=== PATIENT | female | born 1980 | race Caucasian/White ===

== ENCOUNTER 2018-06-23 12:26 | Emergency (ER) | payer MEDICAID ==
[2018-06-23 12:26] VITALS: BMI 36.9
[2018-06-23 12:39] VITALS: O2SAT 99
[2018-06-23 13:54] LABS: BASO % 0.4 % (0.0-2.0); EOS # 0.1 K/uL (0.0-0.7); EOS % 1.9 % (0.0-4.0); HEMOGLOBIN 14.9 g/dL (12.0-16.0); LYMPH % 32.8 % (20.0-40.0); MEAN CELL VOLUME 89.3 fl (81.0-99.0); MEAN CORPUSCULAR HEMOGLOBIN 30.1 pg (27.0-31.0); MEAN CORPUSCULAR HGB CONC 33.7 g/dL (33.0-37.0); MEAN PLATELET VOLUME 8.6 fl (7.2-11.7); MONO # 0.4 K/uL (0.0-0.8); NEUT # 3.6 K/uL (1.8-7.0); NEUT % 58.9 % (50.0-75.0); RBC 4.94 Mil/uL (3.80-5.20); RED CELL DISTRIBUTION WIDTH 12.6 % (11.5-14.5); WHITE BLOOD COUNT 6.1 K/uL (4.8-10.8)
[2018-06-23 14:09] LABS: BLOOD UREA NITROGEN 12 mg/dl (7-17); CALCIUM 9.5 mg/dL (8.4-10.2); GFR AFRICAN-AMERICAN > 60; GFR NON-AFRICAN AMERICAN > 60
[2018-06-23 14:20] LABS: B-TYPE NATRIURETIC PEPTIDE 96.5 pg/ml (0-450)
--- NOTE | 2018-06-23 14:42 | ED PDOC ---
HPI: Chest Pain Time Seen by Provider: 06/23/18 13:10 Chief Complaint (Nursing): Chest Pain Chief Complaint (Provider): chest pain History Per: Patient History/Exam Limitations: no limitations Onset/Duration Of Symptoms: Days (x1), Intermittent Episodes Additional Complaint(s): Loretta Jacobs is a 38 year old female, with a past medical history of asthma and HTN, who presents to the emergency department complaining of an intermittent left sided chest pain onset since yesterday. Patient states pain is exacerbated with movement of upper body and also reports difficulty breathing. Patient states she is taking care of her goddaughter who is particularly heavy and tends to carry her on her left arm. She did not take any medication for pain. She denies any fever, chills, leg swelling, dizziness, back pain, headache or syncope. No further medical complaints. PMD: [facility]. Past Medical History Reviewed: Historical Data, Nursing Documentation, Vital Signs Vital Signs: Last Vital Signs Temp 98.0 F 06/23/18 16:28 Pulse 77 06/23/18 16:28 Resp 16 06/23/18 16:28 BP 132/88 06/23/18 16:28 Pulse Ox 99 06/23/18 16:28 - Medical History PMH: Anxiety, Asthma, Back Problems, Depression, HTN Denies: HIV, Chronic Kidney Disease - Surgical History Surgical History: - Family History Family History: States: Unknown Family Hx - Social History Current smoker - smoking cessation education provided: No Alcohol: None Drugs: Denies - Home Medications Home Medications: Ambulatory Orders Medication Instructions Recorded Cholecalciferol [Vitamin D 1000 IU] 5,000 iu PO SUN 03/02/15 Ibuprofen [Motrin] 600 mg PO TID 03/02/15 Cyclobenzaprine HCl [Flexeril] 10 mg PO PRN PRN #15 tab 03/07/15 Mirtazapine [Remeron] 15 mg PO HS #15 tab 03/07/15 Famotidine [Pepcid] 20 mg PO DAILY #4 tab 03/22/15 Prednisone 50 mg PO DAILY #4 tab 03/22/15 Cimetidine 300 mg PO DAILY #5 tab 07/03/15 DiphenhydrAMINE [Benadryl] 25 mg PO Q8H PRN 5 Days cap 07/03/15 Prednisone 20 mg PO BID #10 tab 07/03/15 Neomycin/Polymyxin/Hydrocort 4 drop AD QID #1 bottle 08/10/15 [Cortisporin Otic Soln] Ciprofloxacin/Ciprofloxa HCl 500 mg PO Q12 #14 tab 01/17/16 [Ciprofloxacin] Phenazopyridine HCl [Pyridium] 100 mg PO TID #6 tab 01/17/16 - Allergies Allergies/Adverse Reactions: Allergies Allergy/AdvReac Type Severity Reaction Status Date / Time chocolate flavor Allergy RASH Verified 06/23/18 12:36 NATHANIEL Risk Score for UA/NSTEMI - NATHANIEL Risk Score Age > 64: NO 3 or more CAD Risk Factors: NO Known CAD (Stenosis greater than 50%): NO Aspirin use in past 7 days: NO Severe Angina: NO EKG ST changes greater than 0.5mm: NO Positive Cardiac Marker: NO NATHANIEL Score: 0 Risk %: 5% Wells Criteria for PE - Wells Criteria for Pulmonary Embolism Clinical Signs and Symptoms of DVT: No P.E is #1 Diagnosis, or Equally Likely: No Heart Rate >100: No Immobilization at least 3 days;Surgery previous 4 weeks: No Previous, objectively diagnosed PE or DVT: No Hemoptysis: No Malignancy w/treatment within 6 months, or palliative: No Total Score: 0 Review of Systems ROS Statement: Except As Marked, All Systems Reviewed And Found Negative Constitutional: Negative for: Fever, Chills Cardiovascular: Positive for: Chest Pain (left sided intermittent). Negative for: Edema (leg) Respiratory: Positive for: Shortness of Breath Musculoskeletal: Negative for: Back Pain Neurological: Negative for: Headache, Dizziness, Other (syncope) Physical Exam - Reviewed Nursing Documentation Reviewed: Yes Vital Signs Reviewed: Yes - Physical Exam Appears: Positive for: No Acute Distress Head Exam: Positive for: ATRAUMATIC, NORMAL INSPECTION, NORMOCEPHALIC Skin: Positive for: Normal Color, Warm, Dry Eye Exam: Positive for: Normal appearance, EOMI, PERRL Neck: Positive for: Painless ROM, Supple Cardiovascular/Chest: Positive for: Regular Rate, Rhythm. Negative for: Chest Non Tender (left chest wall tenderness), Murmur Respiratory: Positive for: Normal Breath Sounds. Negative for: Respiratory Distress Gastrointestinal/Abdominal: Positive for: Normal Exam, Soft. Negative for: Tenderness Back: Positive for: Normal Inspection Extremity: Positive for: Normal ROM (upper and lower extremities). Negative for : Tenderness, Deformity, Swelling Neurologic/Psych: Positive for: Alert, Oriented. Negative for: Motor/Sensory Deficits - Laboratory Results Result Diagrams: 06/23/18 13:50 06/23/18 13:50 - ECG O2 Sat by Pulse Oximetry: 99 (RA) Pulse Ox Interpretation: Normal Medical Decision Making Medical Decision Making: Time: 13:10 Initial impression: chest pain. Differential includes ACS, PE, musculoskeletal chest pain. Initial Plan: --EKG --Chest one view [RAD] --Tradol 30 mg IVP --Reevaluation EKG: NSR, normal QRS, no ST changes. Rate @ 72 bpm. Time: 1520 PROCEDURE: CHEST RADIOGRAPH, 1 VIEW HISTORY: chest pain COMPARISON: None available. FINDINGS: LUNGS: Clear. PLEURA: No pneumothorax or pleural fluid seen. CARDIOVASCULAR: Normal. OSSEOUS STRUCTURES: No significant abnormalities. VISUALIZED UPPER ABDOMEN: Normal. OTHER FINDINGS: None. IMPRESSION: No active disease. ----- Scribe Attestation: Documented by Michael Geronimo, acting as a scribe for Mell Dao MD. Provider Scribe Attestation: All medical record entries made by the Scribe were at my direction and personally dictated by me. I have reviewed the chart and agree that the record accurately reflects my personal performance of the history, physical exam, medical decision making, and the department course for this patient. I have also personally directed, reviewed, and agree with the discharge instructions and disposition. Disposition - Clinical Impression Clinical Impression: Chest pain - Patient ED Disposition Is Patient to be Admitted: No Doctor Will See Patient In The: Office Counseled Patient/Family Regarding: Studies Performed, Diagnosis, Need For Followup - Disposition Referrals: Jamaal Lunsford MD [Staff Provider] - Disposition: Routine/Home Disposition Time: 16:40 Condition: GOOD Additional Instructions: Take motrin for pain. Return for worsening. Follow up with your PCP in 2-3 days. Instructions: Chest Pain Forms: [facility] ED School/Work Excuse
--- NOTE | 2018-06-23 15:21 | RAD ---
Date of service: 06/23/2018 PROCEDURE: CHEST RADIOGRAPH, 1 VIEW HISTORY: chest pain COMPARISON: None available. FINDINGS: LUNGS: Clear. PLEURA: No pneumothorax or pleural fluid seen. CARDIOVASCULAR: Normal. OSSEOUS STRUCTURES: No significant abnormalities. VISUALIZED UPPER ABDOMEN: Normal. OTHER FINDINGS: None. IMPRESSION: No active disease.
[2018-06-23 16:29] VITALS: BP 132/88; PULSE 77; RESP 16; TEMP 98
--- NOTE | 2018-06-23 17:07 | CARD ---
APPROVED REPORT Date of service: 06/23/2018 EKG Measurement Heart [id number] <Conclusion> Normal sinus rhythm Normal ECG
== END 2018-06-23 17:13 | disposition home or self-care (01) ==
LOC: H.ER 12:26
DX: R07.89 Other chest pain (principal); J45.909 Unspecified asthma, uncomplicated; I10 Essential (primary) hypertension; F41.9 Anxiety disorder, unspecified; F32.9 Major depressive disorder, single episode, unspecified
CPT/HCPCS: 71045; 80048; 81025; 83880; 84484; 85025; 85378; 93005; 96374; 99283; J1885

== ENCOUNTER 2018-12-03 06:45 | Emergency (ER) | payer MEDICAID ==
[2018-12-03 06:46] VITALS: BMI 36.9
--- NOTE | 2018-12-03 07:41 | ED PDOC ---
HPI: Influenza Time Seen by Provider: 12/03/18 07:03 Chief Complaint: Cough, Cold, Congestion Chief Complaint (Provider): Flu-like Symptoms History Per: Patient Exam Limitations: no limitations Onset/Duration Of Symptoms: Days (x2) Additional complaint(s):: 38 year old female with pmhx of asthma (on Ventolin as needed) and HTN presents to the ED for evaluation of a sore throat for the past two days associated with chills, nasal congestion, and neck pain. Patient also reports that this morning she had swelling to both her eyes, but that has since resolved. Otherwise denies shortness of breath, chest pain, muscle pain, abdominal pain, and back pain. PMD: [facility] Past Medical History Reviewed: Historical Data, Nursing Documentation, Vital Signs Vital Signs: Last Vital Signs Temp 98 F 12/03/18 06:55 Pulse 64 12/03/18 06:55 Resp 17 12/03/18 06:55 BP 124/74 12/03/18 06:55 Pulse Ox 100 12/03/18 06:55 - Medical History PMH: Anxiety, Asthma, Back Problems, Depression, HTN Denies: HIV, Chronic Kidney Disease - Surgical History Surgical History: - Family History Family History: States: Unknown Family Hx - Social History Current smoker - smoking cessation education provided: No Alcohol: None (Clean 11 years) Drugs: Denies (Clean 11 years) - Immunization History Hx Influenza Vaccination: No - Home Medications Home Medications: Ambulatory Orders Medication Instructions Recorded Cholecalciferol [Vitamin D 1000 IU] 5,000 iu PO SUN 03/02/15 Ibuprofen [Motrin] 600 mg PO TID 03/02/15 Cyclobenzaprine HCl [Flexeril] 10 mg PO PRN PRN #15 tab 03/07/15 Mirtazapine [Remeron] 15 mg PO HS #15 tab 03/07/15 Famotidine [Pepcid] 20 mg PO DAILY #4 tab 03/22/15 Prednisone 50 mg PO DAILY #4 tab 03/22/15 Cimetidine 300 mg PO DAILY #5 tab 07/03/15 DiphenhydrAMINE [Benadryl] 25 mg PO Q8H PRN 5 Days cap 07/03/15 Prednisone 20 mg PO BID #10 tab 07/03/15 Neomycin/Polymyxin/Hydrocort 4 drop AD QID #1 bottle 08/10/15 [Cortisporin Otic Soln] Ciprofloxacin/Ciprofloxa HCl 500 mg PO Q12 #14 tab 01/17/16 [Ciprofloxacin] Phenazopyridine HCl [Pyridium] 100 mg PO TID #6 tab 01/17/16 Guaifenesin/Pseudoephedrne HCl 1 ter PO Q12H PRN #10 ter 12/03/18 [Mucinex D 600 mg-60 mg] Ofloxacin Ophth 0.3% [Ocuflox 1 drop OU BID #1 bottle 12/03/18 Ophth 0.3%] - Allergies Allergies/Adverse Reactions: Allergies Allergy/AdvReac Type Severity Reaction Status Date / Time chocolate flavor Allergy RASH Verified 12/03/18 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 Negative for: Back Pain, Other (muscle pain) Physical Exam - Reviewed Nursing Documentation Reviewed: Yes Vital Signs Reviewed: Yes - Physical Exam Appears: Positive for: No Acute Distress Head Exam: Positive for: ATRAUMATIC, NORMOCEPHALIC Skin: Positive for: Normal Color, Warm. Negative for: Rash Eye Exam: Positive for: Normal appearance, EOMI, PERRL ENT: Positive for: Normal ENT Inspection Neck: Positive for: Normal, Painless ROM, Supple Cardiovascular/Chest: Positive for: Regular Rate, Rhythm Respiratory: Positive for: Normal Breath Sounds. Negative for: Wheezing, Respiratory Distress Gastrointestinal/Abdominal: Positive for: Normal Exam, Soft. Negative for: Tenderness Extremity: Positive for: Normal ROM. Negative for: Swelling Lymphatic: Negative for: Other (cervical lymphadenopathy) Neurologic/Psych: Positive for: Alert, Oriented (x3) Medical Decision Making Medical Decision Making: Time: 0720 Initial Impression: possible flu Initial Plan: --Influenza A B swab Scribe Attestation: Documented by Nette Iraheta, acting as a scribe for Lizzie Beauchamp MD. Provider Scribe Attestation: All medical record entries made by the Scribe were at my direction and personally dictated by me. I have reviewed the chart and agree that the record accurately reflects my personal performance of the history, physical exam, medical decision making, and the department course for this patient. I have also personally directed, reviewed, and agree with the discharge instructions and disposition. - ECG O2 Sat by Pulse Oximetry: 100 (RA) Pulse Ox Interpretation: Normal Disposition - Clinical Impression Clinical Impression: Common cold - Patient ED Disposition Is Patient to be Admitted: No Doctor Will See Patient In The: Office Counseled Patient/Family Regarding: Diagnosis, Need For Followup, Rx Given - Disposition Disposition: Routine/Home Disposition Time: 09:00 Condition: STABLE Prescriptions: Guaifenesin/Pseudoephedrne HCl [Mucinex D 600 mg-60 mg] 1 ter PO Q12H PRN #10 ter PRN Reason: cough/congestion Ofloxacin Ophth 0.3% [Ocuflox Ophth 0.3%] 1 drop OU BID #1 bottle Instructions: Viral Upper Respiratory Infection, Adult (DC) Forms: [employer] (Yi) - POA Present On Arrival: None
[2018-12-03 09:28] VITALS: BP 105/64; PULSE 61; RESP 18; TEMP 98.3; O2SAT 98
== END 2018-12-03 09:26 | disposition home or self-care (01) ==
LOC: H.ER 06:45
DX: J00 Acute nasopharyngitis [common cold] (principal); I10 Essential (primary) hypertension; J45.909 Unspecified asthma, uncomplicated; Z86.59 Personal history of other mental and behavioral disorders